=== PATIENT | male | born 1975 | race Caucasian/White ===

== ENCOUNTER 2020-08-05 16:21 | Emergency (ER) | payer OTHER ==
[2020-08-05 16:38] VITALS: BP 133/71; PULSE 74; O2SAT 100
[2020-08-05] MEDS ORDERED: TENIVAC VIAL IM ONE ×2 (16:54→17:00)
[2020-08-05] MEDS ORDERED: SILVADENE 50 GM TP ONE ×2 (16:54→17:00)
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
== END 2020-08-05 17:20 | disposition home or self-care (01) ==
LOC: ED 16:21
DX: T20.16XA Burn of first degree of forehead and cheek, initial encounter (principal); T22.112A Burn of first degree of left forearm, initial encounter; T22.111A Burn of first degree of right forearm, initial encounter; T21.12XA Burn of first degree of abdominal wall, initial encounter; W38.XXXA Explosion and rupture of other specified pressurized devices, initial encounter; Z23 Encounter for immunization
CPT/HCPCS: 90471; 90714; 99283; A9270-GY

== ENCOUNTER 2022-01-16 03:32 | Emergency (ER) | payer SELFPAY ==
[2022-01-16] MEDS ORDERED: Zofran 4 MG/2 ML VIAL ONE (03:48)
[2022-01-16] MEDS ORDERED: MORPHINE SULFATE 2 MG INJ ONE (03:49)
[2022-01-16] MEDS ORDERED: Zofran 4 MG/2 ML VIAL IV ONE (03:52)
[2022-01-16] MEDS ORDERED: MORPHINE SULFATE 2 MG INJ IV ONE (03:55)
[2022-01-16] MEDS ORDERED: Sodium Chloride 0.9% 1000 ML 1,000 ML IV STA (04:00)
[2022-01-16] MEDS ORDERED: BENADRYL 50 MG/ML IV ONE (04:00)
[2022-01-16] MEDS ORDERED: Inapsine 5 MG/2 ML IV ONE (04:00)
[2022-01-16] MEDS ORDERED: GI COCKTAIL 45 ML (Maalox/Lidocaine) PO ONE (04:02)
--- NOTE | 2022-01-16 04:07 | ERPHSYRPT ---
- History of Present Illness Time Seen by Provider: 01/16/22 04:00 Source: patient Exam Limitations: no limitations Patient Subjective Stated Complaint: headache and sternum pain Triage Nursing Assessment: pt c/o headache which woke him up around 0230 this morning. Pt also c/o pain to upper epigastric area and is nauseated. Pt is alert and oriented x4, cooperative. Pt is light sensitive. Physician History: 46-year-old male with history of migraine presented to the ER with sudden onset generalized headache waking him up from sleep almost an hour prior to arrival, constant, sharp, generalized, 10/10 intensity with associated nausea and dry heaving. Patient also reported increased light sensitivity without any visual disturbance. Reports having similar headaches once a month and does not think this is the worst headache of his life. Denies any neck pain or difficulty movements of neck. Denies any focal numbness tingling weakness. Because of dry heaving complaining of pain in the epigastric area as well. No chest pain palpitations or shortness of breath. Timing/Duration: hour(s) (1), constant, sudden, worse Quality: sharpness Head Pain Location: global Severity of Pain-Max: severe Severity of Pain-Current: severe Recent Head Trauma: frequent headaches Modifying Factors: Worsens With: exposure to light, movement Associated Symptoms: nausea/vomiting, sensitive to light, No dizziness, No fatigue, No facial pain, No fever/chills, No light-headedness, No loss of consciousness, No nasal drainage, No numbness in legs/feet, No sweating, No scotoma, No seizures, No sinus infection, No speech problems, No stiff neck, No trouble walking, No vision changes, No visual disturbance, No weakness Previous symptoms: same symptoms as today Allergies/Adverse Reactions: No Known Drug Allergies Allergy (Verified 01/16/22 03:48) Home Medications: No Reportable Medications [No Reported Medications] 01/16/22 [History] Hx Tetanus, Diphtheria Vaccination/Date Given: Yes Hx Influenza Vaccination/Date Given: No Hx Pneumococcal Vaccination/Date Given: No Immunizations Up to Date: Yes Travel Risk - International Travel Have you traveled outside of the country in past 3 weeks: No - Coronavirus Screening Are you exhibiting any of the following symptoms?: No Close contact with a COVID-19 positive Pt in past 14-21 Days: No - Vaccine Status Have you recieved a Covid-19 vaccination: No - Review of Systems Constitutional: No Symptoms Eyes: No Symptoms Ears, Nose, & Throat: No Symptoms Respiratory: No Symptoms Cardiac: No Symptoms Abdominal/Gastrointestinal: Abdominal Pain, Nausea, Vomiting Genitourinary Symptoms: No Symptoms Musculoskeletal: No Symptoms Skin: No Symptoms Neurological: Headache Psychological: No Symptoms Endocrine: No Symptoms Hematologic/Lymphatic: No Symptoms Immunological/Allergic: No Symptoms - Past Medical History Pertinent Past Medical History: No History: Other Male Reproductive Disorders: Other Other Medical History: hx kidney stones, bursitis - Past Surgical History Past Surgical History: Yes Other Surgical History: CATARACT SURGERY. cyst removed to top of head - Social History Smoking Status: Never smoker Exposure to second hand smoke: Yes Drug Use: none Patient Lives Alone: No - Nursing Vital Signs Nursing Vital Signs: Initial Vital Signs Temperature 98.9 F 01/16/22 03:33 Pulse Rate 88 01/16/22 03:33 Respiratory Rate 18 01/16/22 03:33 Blood Pressure 129/72 01/16/22 03:33 O2 Sat by Pulse Oximetry 100 01/16/22 03:33 Pain Scale Pain Intensity 0 - Physical Exam General Appearance: no apparent distress, alert Eye Exam: PERRL/EOMI, eyes nml inspection Ears, Nose, Throat Exam: normal ENT inspection, TMs normal, pharynx normal, moist mucous membranes Neck Exam: normal inspection, non-tender, supple, full range of motion, No meningismus Respiratory Exam: normal breath sounds, lungs clear Cardiovascular Exam: regular rate/rhythm, normal heart sounds Gastrointestinal/Abdominal Exam: soft, normal bowel sounds, No tenderness Back Exam: normal inspection Extremity Exam: normal inspection, normal range of motion, pelvis stable Mental Status Exam: alert, oriented x 3, cooperative qa software tester Exam: normal hearing, normal speech, PERRL Coordination/Gait Exam: normal cerebellar function Motor/Sensory Exam: no motor deficit, no sensory deficit, no pronator drift, negative Babinski's sign DTR Exam: bicep (R): 2+, bicep (L): 2+, knee (R): 2+, knee (L): 2+ Skin Exam: normal color SpO2 Interpretation: normal SpO2: 100 O2 Delivery: Room Air - Course EKG Interpreted by Me: RATE (93), Sinus Rhythm, NORMAL AXIS, NORMAL INTERVALS, NORMAL QRS Ordered Tests: Active Orders 24 hr Category Date Time Status IV Insertion STAT Care 01/16/22 04:00 Active Medication Summary Discontinued Medications Generic Name Dose Route Start Last Admin Trade Name Wendi PRN Reason Stop Dose Admin Diphenhydramine HCl 50 mg 01/16/22 04:00 01/16/22 04:08 Diphenhydramine Hcl 50 Mg/Ml Vial IV 01/16/22 04:01 50 mg STAT ONE Administration Diphenhydramine HCl Confirm 01/16/22 04:08 Diphenhydramine Hcl 50 Mg/Ml Vial Administered 01/16/22 04:09 Dose 50 mg .ROUTE .STK-MED ONE Droperidol 1.25 mg 01/16/22 04:00 01/16/22 04:10 Droperidol 5 Mg/2 Ml Vial IV 01/16/22 04:01 1.25 mg STAT ONE Administration Droperidol Confirm 01/16/22 04:08 Droperidol 5 Mg/2 Ml Vial Administered 01/16/22 04:09 Dose 5 mg .ROUTE .STK-MED ONE Sodium Chloride 1,000 mls @ 999 mls/hr 01/16/22 04:00 01/16/22 05:12 Sodium Chloride 0.9% 1000 Ml IV 01/16/22 05:00 Infused .Q1H1M STA Infusion Magnesium Hydroxide 45 ml 01/16/22 04:02 Mag Hydrx/Alum Hyd/Simeth/Lido 45 Ml Bottle PO 01/16/22 04:03 STAT ONE Morphine Sulfate Confirm 01/16/22 03:49 Morphine Sulfate 2 Mg/Ml Inj Administered 01/16/22 03:50 Dose 2 mg .ROUTE .STK-MED ONE Morphine Sulfate 2 mg 01/16/22 03:55 01/16/22 03:55 Morphine Sulfate 2 Mg/Ml Inj IV 01/16/22 03:56 2 mg STAT ONE Administration Ondansetron HCl Confirm 01/16/22 03:48 Ondansetron Hcl 4 Mg/2 Ml Vial Administered 01/16/22 03:49 Dose 4 mg .ROUTE .STK-MED ONE Ondansetron HCl 4 mg 01/16/22 03:52 01/16/22 03:53 Ondansetron Hcl 4 Mg/2 Ml Vial IV 01/16/22 03:53 4 mg STAT ONE Administration - Progress Progress: improved Air Movement: good Progress Note: 01/16/22 05:49 46-year-old is evaluated for Migraine. Nonfocal neuro exam throughout her stay in the ER, no nuchal rigidity, does not think this is the worst headache of his life and similar episodes in the past. Given recommended outpatient primary care and neurology follow-up. Do not think needs CT imaging or any other work- up and is stable for discharge. Patient ambulated in the ER without any limitation. Blood Culture(s) Obtained: No Antibiotics given: No Counseled pt/family regarding: diagnosis, need for follow-up - Departure Departure Disposition: Home Clinical Impression: Migraine Qualifiers: Migraine type: without aura Status migrainosus presence: without status migrainosus Intractability: not intractable Qualified Code(s): G43.009 - Mi graine without aura, not intractable, without status migrainosus Condition: Stable Critical Care Time: No Referrals: LIZ CAMPOS [Primary Care Provider] - Follow up/PCP as directed (1-2 days for re evaluation ) AIYLN FOSTER [NON-STAFF PHY W/O PRIVILEGES] - Follow up/PCP as directed (call for appointment ) Instructions: Migraines in Adults Additional Instructions: Take Tylenol/ibuprofen as needed. Follow-up with primary care and neurology for reevaluation to be on prophylactic medications for migraine. Return to ER for intractable headache, vomiting, neck pain, visual disturbance, numbness tingling focal weakness etc.
[2022-01-16] MEDS ORDERED: BENADRYL 50 MG/ML ONE (04:08)
[2022-01-16] MEDS ORDERED: Inapsine 5 MG/2 ML ONE (04:08)
[2022-01-16 05:49] VITALS: O2SAT 100
[2022-01-16] MEDS ORDERED: ZOFRAN ODT 4 MG PO ONE (05:57)
[2022-01-16] MEDS ORDERED: ZOFRAN ODT 4 MG ONE (05:58)
[2022-01-16 06:08] VITALS: BP 120/70; PULSE 80
== END 2022-01-16 06:09 | disposition home or self-care (01) ==
LOC: ED 03:32
DX: G43.009 Migraine without aura, not intractable, without status migrainosus (principal); R11.0 Nausea; H53.143 Visual discomfort, bilateral
CPT/HCPCS: 36000; 96374; 96375; 99284; J1200; J2270; J2405; Q0162

== ENCOUNTER 2022-01-17 15:44 | Emergency (ER) | payer SELFPAY ==
[2022-01-17] MEDS ORDERED: BENADRYL 50 MG/ML IV ONE (16:09)
[2022-01-17] MEDS ORDERED: Zofran 4 MG/2 ML VIAL IV ONE (16:09)
[2022-01-17] MEDS ORDERED: MORPHINE SULFATE 4 MG INJ IV ONE (16:09)
[2022-01-17] MEDS ORDERED: Reglan 10 MG/2 ML IV ONE (16:09)
[2022-01-17] MEDS ORDERED: Sodium Chloride 0.9% 1000 ML 1,000 ML IV STA (16:09)
[2022-01-17] MEDS ORDERED: PROTONIX 40 MG IV IV ONE ×2 (16:09→16:21)
[2022-01-17] MEDS ORDERED: BENADRYL 50 MG/ML ONE (16:21)
[2022-01-17] MEDS ORDERED: Sodium Chloride 0.9% 1000 ML 1,000 ML ONE (16:22)
[2022-01-17] MEDS ORDERED: Reglan 10 MG/2 ML ONE (16:22)
[2022-01-17] MEDS ORDERED: MORPHINE SULFATE 4 MG INJ ONE (16:22)
[2022-01-17] MEDS ORDERED: TYLENOL 325 MG ONE (16:24)
[2022-01-17] MEDS ORDERED: TYLENOL 325 MG PO STA (16:25)
[2022-01-17] MEDS ORDERED: Zofran 4 MG/2 ML VIAL ONE (16:30)
[2022-01-17 16:50] LABS: Absolute Neutrophil Ct (ANC) 7.27 (1.4-6.9); Basophil (Absolute #) 0.01 (0-0.4); Eosinophil (Absolute #) 0 (0-0.5); Hemoglobin 14.5 gm/dl (12.5-18.0); Lymphocyte (Absolute #) 1.01 (1.0-4.6); Lymphocytes % 10.9 % (24.0-44.0); Mean Cell Volume 86.6 fl (78-100); Mean Corpuscular Hemoglobin 28.5 pg (26-32); Mean Platelet Volume 11.1 fl (7.5-11.0); Monocyte (Absolute #) 0.96 (0.0-1.3); Monocytes % 10.4 % (0.0-12.0); Neutrophil % 78.6 % (36.0-66.0); Platelet Count 178 K/mm3 (150-450); Red Blood Count 5.08 M/mm3 (4.1-5.6); Red Cell Distribution Width 13.3 % (11.5-14.0); White Blood Count 9.3 K/mm3 (4.0-10.5)
[2022-01-17 16:58] LABS: ALBUMIN 3.9 g/dL (3.5-5.0); ALKALINE PHOSPHATASE 81 U/L (38-126); ANION GAP 16.5 MEQ/L (5-15); BLOOD UREA NITROGEN 17 mg/dL (9-20); CHLORIDE 103 mmol/L (98-107); Calcium 8.8 mg/dL (8.4-10.2); Carbon Dioxide 22 mmol/L (22-30); Creatinine 1 1.16 mg/dL (0.66-1.25); EST GLOMERULAR FILTRATION RATE > 60.0 ML/MIN; Glucose 105 mg/dL (74-106); LIPASE 225 U/L (23-300); Potassium 4.2 mmol/L (3.5-5.1); SGOT/AST 41 U/L (17-59); SGPT/ALT 43 U/L (0-50); SODIUM 137 mmol/L (137-145); Total Protein 6.6 g/dL (6.3-8.2)
--- NOTE | 2022-01-17 16:58 | ERPHSYRPT ---
- History of Present Illness Time Seen by Provider: 01/17/22 15:58 Source: patient, family Exam Limitations: no limitations Patient Subjective Stated Complaint: pt reports migraine since , states he was seen here and sent home and has not improved. pt now also reports dizziness, sternal pain, shortness of breath and shivering. pt reports vomiting x 1 today. Triage Nursing Assessment: pt is aox3, pt is shivering upon exam, pt febrile, re sps easy and non labored, radial pulses strong and equal, cap refill < 3 seconds, pt skin hot to touch, mucous membranes appear dry. Physician History: 46-year-old male presented to the ER with chief complaint of headache, cough, epigastric area discomfort with nausea and vomiting. Patient reports started to have headache waking him up from sleep with multiple episodes of nonprojectile, nonbilious vomiting yesterday, was evaluated in the ER, improved after symptomatic treatment but continued to have vomiting and today spiked fever with a T-max of 101 with chills, body aches fatigue tiredness and lack of energy. Denies any focal numbness tingling or weakness. Patient reports having similar headaches in the past but this seems to be a little worse than usual and lasting longer. Denies any neck pain currently but with his usual migraine he does get neck pain. No visual symptoms. Timing/Duration: day(s) (2), gradual onset, worse Severity: moderate Associated Symptoms: nausea, vomiting, abdominal pain, shortness of breath, cough, chills, chest pain, fever, headaches, malaise, weakness Allergies/Adverse Reactions: No Known Drug Allergies Allergy (Verified 01/17/22 16:00) Hx Tetanus, Diphtheria Vaccination/Date Given: No (UNK) Hx Influenza Vaccination/Date Given: No Hx Pneumococcal Vaccination/Date Given: No Immunizations Up to Date: Yes Travel Risk - International Travel Have you traveled outside of the country in past 3 weeks: No - Coronavirus Screening Are you exhibiting any of the following symptoms?: No - Vaccine Status Have you recieved a Covid-19 vaccination: No - Review of Systems Constitutional: Fever, Chills, Fatigue, Weakness Eyes: No Symptoms Ears, Nose, & Throat: Nose Congestion Respiratory: Cough, Dyspnea, Wheezing Cardiac: Chest Pain Abdominal/Gastrointestinal: Nausea, Vomiting Genitourinary Symptoms: No Symptoms Musculoskeletal: Myalgias Skin: No Symptoms Neurological: Dizziness, Headache Psychological: No Symptoms Endocrine: No Symptoms Hematologic/Lymphatic: No Symptoms Immunological/Allergic: No Symptoms - Past Medical History Pertinent Past Medical History: No History: Other Male Reproductive Disorders: Other Other Medical History: hx kidney stones, bursitis - Past Surgical History Past Surgical History: Yes Other Surgical History: CATARACT SURGERY. cyst removed to top of head - Social History Smoking Status: Never smoker Exposure to second hand smoke: No Drug Use: none Patient Lives Alone: No - Nursing Vital Signs Nursing Vital Signs: Initial Vital Signs Temperature 101.8 F 01/17/22 15:47 Pulse Rate 85 01/17/22 15:47 Respiratory Rate 20 01/17/22 15:47 Blood Pressure 123/74 01/17/22 15:47 O2 Sat by Pulse Oximetry 99 01/17/22 15:47 Pain Scale Pain Intensity 0 - Physical Exam General Appearance: no apparent distress, alert Eye Exam: PERRL/EOMI, eyes nml inspection Ears, Nose, Throat Exam: normal ENT inspection, TMs normal, pharynx normal, moist mucous membranes Neck Exam: normal inspection, non-tender, supple, full range of motion, No meningismus, No midline tenderness Respiratory Exam: normal breath sounds, lungs clear Cardiovascular Exam: regular rate/rhythm, normal heart sounds Gastrointestinal/Abdomen Exam: soft, normal bowel sounds, No tenderness, No guarding Back Exam: normal inspection, normal range of motion Extremity Exam: normal inspection, normal range of motion Neurologic Exam: alert, oriented x 3, cooperative, retanner II-XII nml as tested, normal mood/affect, nml cerebellar function, sensation nml, No motor deficits Skin Exam: normal color SpO2 Interpretation: normal SpO2: 99 - Course EKG Interpreted by Me: RATE, Sinus Rhythm, NORMAL AXIS, NORMAL QRS Ordered Tests: Active Orders 24 hr Category Date Time Status EKG-ER Only STAT Care 01/17/22 16:09 Active IV Insertion STAT Care 01/17/22 16:09 Active NPO (ED) STAT Care 01/17/22 16:09 Active ABDOMEN AND PELVIS W/0 CONTRAS [CT] Stat Exams 01/17/22 16:08 Completed CHEST WITHOUT CONTRAST [CT] Stat Exams 01/17/22 16:08 Completed HEAD WITHOUT CONTRAST [CT] Stat Exams 01/17/22 16:08 Completed BLOOD CULTURE Stat Lab 01/17/22 16:40 Received CBC W DIFF Stat Lab 01/17/22 16:00 Completed CMP Stat Lab 01/17/22 16:00 Completed LIPASE Stat Lab 01/17/22 16:00 Completed Lactic Acid Stat Lab 01/17/22 16:59 Completed TROPONIN Q3H Lab 01/17/22 16:00 Completed TROPONIN Q3H Lab 01/17/22 19:15 Ordered TROPONIN Q3H Lab 01/17/22 22:15 Ordered TROPONIN Q3H Lab 01/18/22 01:15 Ordered TROPONIN Q3H Lab 01/18/22 04:15 Ordered UA W/RFX UR CULTURE Stat Lab 01/17/22 16:09 Ordered Medication Summary Discontinued Medications Generic Name Dose Route Start Last Admin Trade Name Freq PRN Reason Stop Dose Admin Acetaminophen 975 mg 01/17/22 16:25 01/17/22 16:27 Acetaminophen 325 Mg Tablet PO 01/17/22 16:26 975 mg STAT STA Administration Acetaminophen Confirm 01/17/22 16:24 Acetaminophen 325 Mg Tablet Administered 01/17/22 16:25 Dose 975 mg .ROUTE .STK-MED ONE Diphenhydramine HCl 25 mg 01/17/22 16:09 01/17/22 16:29 Diphenhydramine Hcl 50 Mg/Ml Vial IV 01/17/22 16:10 25 mg STAT ONE Administration Diphenhydramine HCl Confirm 01/17/22 16:21 Diphenhydramine Hcl 50 Mg/Ml Vial Administered 01/17/22 16:22 Dose 50 mg .ROUTE .STK-MED ONE Sodium Chloride 1,000 mls @ 999 mls/hr 01/17/22 16:09 01/17/22 17:36 Sodium Chloride 0.9% 1000 Ml IV 01/17/22 17:09 Infused .Q1H1M STA Infusion Sodium Chloride Confirm 01/17/22 16:22 Sodium Chloride 0.9% 1000 Ml Administered 01/17/22 16:23 Dose 1,000 mls @ ud .ROUTE .STK-MED ONE Metoclopramide HCl 10 mg 01/17/22 16:09 01/17/22 16:30 Metoclopramide Hcl 10 Mg/2 Ml Vial IV 01/17/22 16:10 10 mg STAT ONE Administration Metoclopramide HCl Confirm 01/17/22 16:22 Metoclopramide Hcl 10 Mg/2 Ml Vial Administered 01/17/22 16:23 Dose 10 mg .ROUTE .STK-MED ONE Morphine Sulfate 4 mg 01/17/22 16:09 01/17/22 16:30 Morphine Sulfate 4 Mg/Ml Injection IV 01/17/22 16:10 4 mg STAT ONE Administration Morphine Sulfate Confirm 01/17/22 16:22 Morphine Sulfate 4 Mg/Ml Injection Administered 01/17/22 16:23 Dose 4 mg .ROUTE .STK-MED ONE Ondansetron HCl 4 mg 01/17/22 16:09 01/17/22 16:31 Ondansetron Hcl 4 Mg/2 Ml Vial IV 01/17/22 16:10 4 mg STAT ONE Administration Ondansetron HCl Confirm 01/17/22 16:30 Ondansetron Hcl 4 Mg/2 Ml Vial Administered 01/17/22 16:31 Dose 4 mg .ROUTE .STK-MED ONE Pantoprazole Sodium 40 mg 01/17/22 16:09 01/17/22 16:29 Pantoprazole 40 Mg Vial IV 01/17/22 16:10 40 mg STAT ONE Administration Pantoprazole Sodium Confirm 01/17/22 16:21 Pantoprazole 40 Mg Vial Administered 01/17/22 16:22 Dose 40 mg IV .STK-MED ONE Lab/Rad Data: Laboratory Result Diagrams 01/17/22 16:00 01/17/22 16:00 Laboratory Results 01/17/22 01/17/22 01/17/22 Range/Units 17:45 16:59 16:00 WBC (4.0-10.5) K/mm3 RBC (4.1-5.6) M/mm3 Hgb (12.5-18.0) gm/dl Hct (42-50) % MCV (78-100) fl MCH (26-32) pg MCHC (32-36) g/dl RDW (11.5-14.0) % Plt Count (150-450) K/mm3 MPV (7.5-11.0) fl Gran % (36.0-66.0) % Eos # (Auto) (0-0.5) Absolute Lymphs (auto) (1.0-4.6) Absolute Monos (auto) (0.0-1.3) Lymphocytes % (24.0-44.0) % Monocytes % (0.0-12.0) % Eosinophils % (0.00-5.0) % Basophils % (0.0-0.4) % Absolute Granulocytes (1.4-6.9) Basophils # (0-0.4) Sodium (137-145) mmol/L Potassium (3.5-5.1) mmol/L Chloride (98-107) mmol/L Carbon Dioxide (22-30) mmol/L Anion Gap (5-15) MEQ/L BUN (9-20) mg/dL Creatinine (0.66-1.25) mg/dL Estimated GFR ML/MIN Glucose (74-106) mg/dL Lactic Acid 2.4 H (0.4-2.0) Calcium (8.4-10.2) mg/dL Total Bilirubin (0.2-1.3) mg/dL AST (17-59) U/L ALT (0-50) U/L Alkaline Phosphatase (38-126) U/L Troponin I < 0.012 (0.000-0.034) ng/mL Serum Total Protein (6.3-8.2) g/dL Albumin (3.5-5.0) g/dL Lipase (23-300) U/L Influenza Type A Ag NEGATIVE (NEGATIVE) Influenza Type B Ag NEGATIVE (NEGATIVE) RSV (PCR) NEGATIVE (Negative) SARS-CoV-2 (PCR) POSITIVE A (NEGATIVE) 01/17/22 01/17/22 Range/Units 16:00 16:00 WBC 9.3 (4.0-10.5) K/mm3 RBC 5.08 (4.1-5.6) M/mm3 Hgb 14.5 (12.5-18.0) gm/dl Hct 44.0 (42-50) % MCV 86.6 (78-100) fl MCH 28.5 (26-32) pg MCHC 33.0 (32-36) g/dl RDW 13.3 (11.5-14.0) % Plt Count 178 (150-450) K/mm3 MPV 11.1 H (7.5-11.0) fl Gran % 78.6 H (36.0-66.0) % Eos # (Auto) 0 (0-0.5) Absolute Lymphs (auto) 1.01 (1.0-4.6) Absolute Monos (auto) 0.96 (0.0-1.3) Lymphocytes % 10.9 L (24.0-44.0) % Monocytes % 10.4 (0.0-12.0) % Eosinophils % 0.0 (0.00-5.0) % Basophils % 0.1 (0.0-0.4) % Absolute Granulocytes 7.27 H (1.4-6.9) Basophils # 0.01 (0-0.4) Sodium 137 (137-145) mmol/L Potassium 4.2 (3.5-5.1) mmol/L Chloride 103 (98-107) mmol/L Carbon Dioxide 22 (22-30) mmol/L Anion Gap 16.5 H (5-15) MEQ/L BUN 17 (9-20) mg/dL Creatinine 1.16 (0.66-1.25) mg/dL Estimated GFR > 60.0 ML/MIN Glucose 105 (74-106) mg/dL Lactic Acid (0.4-2.0) Calcium 8.8 (8.4-10.2) mg/dL Total Bilirubin 0.60 (0.2-1.3) mg/dL AST 41 (17-59) U/L ALT 43 (0-50) U/L Alkaline Phosphatase 81 (38-126) U/L Troponin I (0.000-0.034) ng/mL Serum Total Protein 6.6 (6.3-8.2) g/dL Albumin 3.9 (3.5-5.0) g/dL Lipase 225 (23-300) U/L Influenza Type A Ag (NEGATIVE) Influenza Type B Ag (NEGATIVE) RSV (PCR) (Negative) SARS-CoV-2 (PCR) (NEGATIVE) - Progress Progress Note: 01/17/22 18:32 He is given fluid bolus along with symptomatic treatment for headache, on reevaluation his headache is completely resolved. No vomiting while in the ER. Given Tylenol for fever. Has normal white count, grossly unremarkable chemistries. CT head negative for any acute findings .no neck rigidity. Nonfocal neuro exam throughout her stay in the ER. CT chest and abdomen pelvis also negative for any acute findings. I have offered him lumbar puncture which she refused and does understand the risk of permanent brain damage. I checked his COVID which is positive and patient was unvaccinated. This does explain his symptoms. He is not hypoxic, not in any distress. Does not want to stay in the hospital. Stable for discharge. Counseled pt/family regarding: lab results, diagnosis, need for follow-up, rad results - Departure Departure Disposition: Home Clinical Impression: Migraine, COVID-19 virus detected Condition: Stable Critical Care Time: No Referrals: LIZ CAMPOS [Primary Care Provider] - Follow up/PCP as directed (In 2 days for reevaluation) Instructions: Headache, Adult (DC), Coronavirus Disease 2019 (COVID-19) (DC) Additional Instructions: Follow contact/droplet precautions. Take Tylenol as needed for fever. Take Zofran as needed for nausea vomiting and keep yourself well-hydrated. Follow-up with primary care for reevaluation. Return to ER for persistent high-grade fever, difficulty movements of neck, intractable vomiting, difficulty breathing etc. Prescriptions: Ondansetron ODT 4 MG [Zofran Odt 4 mg] 1 ea PO QIDPRN PRN #7 tablet PRN Reason: n/v
--- NOTE | 2022-01-17 17:51 | XRAY ---
Indication: Migraine headache. Multiple contiguous axial images obtained through the head without contrast. Comparison: None Normal appearing brain parenchyma, ventricles, and bony calvarium for patient's age. Visualized paranasal sinuses and mastoid air cells are clear. Impression: Normal CT head without contrast exam. Comment: Preliminary interpretation made by [facility]. No critical discrepancy.
--- NOTE | 2022-01-17 17:53 | XRAY ---
Indication: Chest pain. Multiple contiguous axial images obtained through the chest without contrast. Comparison: August 11, 2016 Lungs demonstrates minimal bilateral dependent atelectasis. No suspicious pulmonary mass, infiltrate, effusion, or pneumothorax. Heart not enlarged. Stable tiny left hilar calcified node. No pathologic mediastinal lymphadenopathy. Bony thorax intact. CT abdomen/pelvis reported separately. Impression: Continued negative CT chest without contrast exam. Again incidental old granulomatous disease. Comment: Preliminary interpretation made by [facility]. No critical discrepancy.
--- NOTE | 2022-01-17 17:55 | XRAY ---
Indication: Abdomen pain. Multiple contiguous axial images obtained through the abdomen and pelvis without contrast. Comparison: October 02, 2015. CT chest reported separately. Noncontrasted stomach and bowel loops nonobstructed with normal appendix. No free fluid/air. Again nonobstructing right renal punctate calculus. Remaining liver, gallbladder, pancreas, spleen, adrenal glands, kidneys, ureters, bladder, and aorta appear unremarkable for noncontrast exam. Osseous structures intact. No ventral or inguinal hernias. Impression: 1. Stable nonobstructing renal punctate calculus. 2. Remaining CT abdomen/pelvis without contrast exam is again negative. Comment: Preliminary interpretation made by [facility]. No critical discrepancy.
[2022-01-17 18:11] LABS: INFLUENZA A NEGATIVE (NEGATIVE); INFLUENZA B NEGATIVE (NEGATIVE); RESPIRATORY SYNCTIAL VIRUS NEGATIVE (Negative)
[2022-01-17 18:24] LABS: SARS-CoV-2 Xpert Express POSITIVE (NEGATIVE)
[2022-01-17] MEDS ORDERED: TORAdol 30 mg Injection IV ONE (18:40)
[2022-01-17] MEDS ORDERED: TORAdol 30 mg Injection ONE (18:41)
[2022-01-17 19:21] VITALS: BP 110/62; PULSE 80; O2SAT 95
== END 2022-01-17 19:26 | disposition home or self-care (01) ==
LOC: ED 15:44
DX: U07.1 COVID-19 (principal); G43.909 Migraine, unspecified, not intractable, without status migrainosus; R05.9 Cough, unspecified; R10.13 Epigastric pain; R11.2 Nausea with vomiting, unspecified; R50.9 Fever, unspecified; M79.10 Myalgia, unspecified site; R53.83 Other fatigue
CPT/HCPCS: 0241U; 36000; 36415; 70450; 71250; 74176; 80053; 83605; 83690; 84484; 85025; 87040; 93005; 96374; 96375; 99285; J1200; J1885; J2270; J2405; A9270-GY

== ENCOUNTER 2022-02-21 18:02 | Emergency (ER) | payer SELFPAY ==
[2022-02-21] MEDS ORDERED: KEFLEX 500 MG PO ONE (19:15)
[2022-02-21] MEDS ORDERED: PERCOCET TABLET 5/325MG PO ONE (19:16)
--- NOTE | 2022-02-21 19:21 | ERPHSYRPT ---
- History of Present Illness Time Seen by Provider: 02/21/22 18:25 Source: patient Exam Limitations: no limitations Patient Subjective Stated Complaint: cut left 5th digit on jigsaw today Triage Nursing Assessment: pt alert, resp easy, walked in, face mask in place, has laceration to tip of 5th left digit, no bleeding Physician History: 46-year-old right-handed dominant male presented to the ER after his hand getting crushed between jigsaw while working prior to arrival. Complaining of moderate intensity sharp pain in the left little finger tip. There was bleeding initially but stopped with applying pressure. Up-to-date with tetanus. No injury anywhere else. Occurred: just prior to arrival Quality: sharpness Severity of Pain-Max: moderate Severity of Pain-Current: moderate Extremities Pain Location: 5th finger: left Modifying Factors: Improves With: immobilization. Worsens With: movement Associated Symptoms: none Allergies/Adverse Reactions: No Known Drug Allergies Allergy (Verified 02/21/22 18:16) Hx Tetanus, Diphtheria Vaccination/Date Given: No Hx Influenza Vaccination/Date Given: No Hx Pneumococcal Vaccination/Date Given: No Immunizations Up to Date: Yes Travel Risk - International Travel Have you traveled outside of the country in past 3 weeks: No - Coronavirus Screening Are you exhibiting any of the following symptoms?: No Close contact with a COVID-19 positive Pt in past 14-21 Days: No - Vaccine Status Have you recieved a Covid-19 vaccination: No - Review of Systems Constitutional: No Symptoms Eyes: No Symptoms Respiratory: No Symptoms Cardiac: No Symptoms Abdominal/Gastrointestinal: No Symptoms Genitourinary Symptoms: No Symptoms Musculoskeletal: Injury, Joint Pain Skin: Skin Lesions Neurological: No Symptoms Psychological: No Symptoms Hematologic/Lymphatic: No Symptoms - Past Medical History Pertinent Past Medical History: No History: Other Male Reproductive Disorders: Other Other Medical History: hx kidney stones, bursitis - Past Surgical History Past Surgical History: No Other Surgical History: CATARACT SURGERY. cyst removed to top of head - Social History Smoking Status: Never smoker Exposure to second hand smoke: No Drug Use: none Patient Lives Alone: No - Nursing Vital Signs Nursing Vital Signs: Initial Vital Signs Temperature 97.6 F 02/21/22 18:09 Pulse Rate 68 02/21/22 18:09 Respiratory Rate 18 02/21/22 18:09 Blood Pressure 106/73 02/21/22 18:09 O2 Sat by Pulse Oximetry 97 02/21/22 18:09 Pain Scale Pain Intensity 9 - Physical Exam General Appearance: no apparent distress, alert Neck Exam: normal inspection Cardiovascular/Respiratory Exam: normal breath sounds, regular rate/rhythm Wrist Exam: normal inspection, non-tender, no evidence of injury, normal ROM Hand Exam: laceration (Curved superficial laceration at the tip of finger to the pulp. Very tender to touch.) Mental Status Exam: alert, oriented x 3 Skin Exam: normal color SpO2 Interpretation: normal SpO2: 97 O2 Delivery: Room Air Ordered Tests: Active Orders 24 hr Category Date Time Status FINGER(S) Stat Exams 02/21/22 18:51 Taken - Progress Progress: improved, pain not gone completely Progress Note: 02/21/22 19:18 Given pain medication for symptomatic relief. X-ray showed fracture tuft. As per patient request laceration is repaired with glue and Steri-Strip as he does not want stitching done. Given dose of antibiotics. Outpatient hand surgery follow-up recommended. Counseled pt/family regarding: diagnosis, need for follow-up, rad results - Departure Departure Disposition: Home Clinical Impression: Open fracture of tuft of distal phalanx of finger Condition: Stable Critical Care Time: No Referrals: LIZ CAMPOS [Primary Care Provider] - Follow Up with PCP/3 days RENATO ROGERS MD [NON-STAFF PHY W/O PRIVILEGES] - Follow up/PCP as directed (In 3 days for reevaluation) Instructions: Laceration Repair With Glue (DC) Additional Instructions: Keep it clean, avoid exertional activities. Take Tylenol/ibuprofen as needed for pain. Follow-up with hand surgery for reevaluation. Return to ER for increasing pain swelling redness discharge/fever chills etc. Prescriptions: Tramadol HCl 50 mg [Ultram 50 mg] 50 mg PO Q6HPRN PRN 3 Days #12 tablet PRN Reason: Pain Cephalexin Mh 500 mg [Keflex 500 mg] 500 mg PO TID #21 cap
[2022-02-21] MEDS ORDERED: PERCOCET TABLET 5/325MG ONE (19:25)
[2022-02-21] MEDS ORDERED: KEFLEX 500 MG ONE (19:25)
--- NOTE | 2022-02-21 20:29 | XRAY ---
Indication: Laceration. Comparison: None 3 view left 5th finger demonstrates distal soft tissue swelling/laceration and nondisplaced tuft fracture. No other bony, articular, or soft tissue abnormalities.
[2022-02-21 20:32] VITALS: BP 114/73; PULSE 74; O2SAT 98
== END 2022-02-21 20:33 | disposition home or self-care (01) ==
LOC: ED 18:02
DX: S62.637B Displaced fracture of distal phalanx of left little finger, initial encounter for open fracture (principal); W27.0XXA Contact with workbench tool, initial encounter; M79.645 Pain in left finger(s); Z79.891 Long term (current) use of opiate analgesic
CPT/HCPCS: 73140; 99283; A9270-GY

== ENCOUNTER 2023-07-14 17:36 | Emergency (ER) | payer SELFPAY ==
--- NOTE | 2023-07-14 17:39 | ERPHSYRPT ---
- History of Present Illness Time Seen by Provider: 07/14/23 17:38 Source: patient Exam Limitations: no limitations Physician History: This is a right-handed 48-year-old white male who was working at a tire shop and changing a tire and when he lifted a heavy tire he felt a pop in his shoulder then pain in the right posterior trapezius distribution. He is most comfortable with his elbow flexed and against his abdomen. Occurred: just prior to arrival Method of Injury: other (Lifting a heavy tire) Quality: aching, throbbing Severity of Pain-Max: mild (To moderate) Severity of Pain-Current: mild (To moderate) Extremities Pain Location: shoulder: right Modifying Factors: Improves With: movement Associated Symptoms: none Allergies/Adverse Reactions: No Known Drug Allergies Allergy (Verified 07/14/23 17:55) Hx Tetanus, Diphtheria Vaccination/Date Given: No Hx Influenza Vaccination/Date Given: No Hx Pneumococcal Vaccination/Date Given: No Travel Risk - International Travel Have you traveled outside of the country in past 3 weeks: No - Coronavirus Screening Are you exhibiting any of the following symptoms?: No Close contact with a COVID-19 positive Pt in past 14-21 Days: No - Vaccine Status Have you recieved a Covid-19 vaccination: No - Review of Systems Constitutional: No Symptoms Eyes: No Symptoms Ears, Nose, & Throat: No Symptoms Respiratory: No Symptoms Cardiac: No Symptoms Abdominal/Gastrointestinal: No Symptoms Genitourinary Symptoms: No Symptoms Musculoskeletal: Injury (Right shoulder) Skin: No Symptoms Neurological: No Symptoms Psychological: No Symptoms Endocrine: No Symptoms Hematologic/Lymphatic: No Symptoms Immunological/Allergic: No Symptoms All Other Systems: Reviewed and Negative - Past Medical History Pertinent Past Medical History: No History: Other Male Reproductive Disorders: Other Other Medical History: hx kidney stones, bursitis - Past Surgical History Past Surgical History: No Other Surgical History: CATARACT SURGERY. cyst removed to top of head - Social History Smoking Status: Never smoker Exposure to second hand smoke: No Drug Use: none Patient Lives Alone: No - Nursing Vital Signs Nursing Vital Signs: Initial Vital Signs Temperature 97.0 F 07/14/23 17:59 Pulse Rate 74 07/14/23 17:59 Respiratory Rate 18 07/14/23 17:59 Blood Pressure 123/71 07/14/23 17:59 O2 Sat by Pulse Oximetry 96 07/14/23 17:59 Pain Scale Pain Intensity 9 - Physical Exam General Appearance: no apparent distress, alert, anxiety Eyes, Ears, Nose, Throat Exam: normal ENT inspection, moist mucous membranes Neck Exam: normal inspection, non-tender, supple, full range of motion Cardiovascular/Respiratory Exam: chest non-tender, no respiratory distress Abdominal Exam: non-tender Back Exam: normal inspection, normal range of motion, No CVA tenderness, No vertebral tenderness Shoulder Exam: normal inspection, no evidence of injury, limited ROM (Secondary to painright shoulder) Elbow/Forearm Exam: normal inspection, non-tender, no evidence of injury, normal ROM Wrist Exam: normal inspection, non-tender, no evidence of injury Hand Exam: normal inspection, non-tender, no evidence of injury, normal ROM Neuro/Tendon Exam: normal sensation, normal motor functions, normal tendon functions Mental Status Exam: alert, oriented x 3, cooperative Skin Exam: normal color, warm, dry SpO2 Interpretation: normal O2 Delivery: Room Air - Course Nursing assessment & vital signs reviewed: Yes Ordered Tests: Active Orders 24 hr Category Date Time Status SHOULDER Stat Exams 07/14/23 18:02 Taken Medication Summary Discontinued Medications Generic Name Dose Route Start Last Admin Trade Name Freq PRN Reason Stop Dose Admin Methylprednisolone Sodium 0 mg 07/14/23 18:14 07/14/23 18:24 Succinate 125 mg/ Sterile IM 07/14/23 18:15 125 mg Water 2 ml STAT ONE Administration Methylprednisolone Sodium Succinate Confirm 07/14/23 18:21 Methylprednis Sod Succ 125 Mg/2 Ml Vial Administered 07/14/23 18:22 Dose 125 mg .ROUTE .STK-MED ONE Orphenadrine Citrate 60 mg 07/14/23 18:14 07/14/23 18:24 Orphenadrine Citrate 60 Mg/2 Ml Vial IM 07/14/23 18:15 60 mg STAT ONE Administration Orphenadrine Citrate Confirm 07/14/23 18:21 Orphenadrine Citrate 60 Mg/2 Ml Vial Administered 07/14/23 18:22 Dose 60 mg .ROUTE .STK-MED ONE Oxycodone/Acetaminophen 1 tab 07/14/23 18:13 07/14/23 18:24 Oxycodone Hcl/Apap 5 Mg/325 Mg Tablet PO 07/14/23 18:14 1 tab STAT STA Administration Oxycodone/Acetaminophen Confirm 07/14/23 18:21 Oxycodone Hcl/Apap 5 Mg/325 Mg Tablet Administered 07/14/23 18:22 Dose 1 tab .ROUTE .STK-MED ONE Sterile Water Confirm 07/14/23 18:21 Water For Injection,Sterile 10 Ml Vial Administered 07/14/23 18:22 Dose 10 ml IJ .STK-MED ONE - Progress Progress: improved, pain not gone completely, re-examined Progress Note: 07/14/23 18:19 This patient's medical issue is 1 of low complexity. The level complex in the work-up performed is based on review the patient's past medical history, review the patient's medication list, review of the patient's drug allergy list, history present illness and physical findings on examination. The work-up in this patient includes x-ray of the right shoulder. 07/14/23 18:51 I interpreted the x-ray of the right shoulder. There is no evidence of any acute fracture or dislocation. Counseled pt/family regarding: diagnosis, need for follow-up, rad results Medical Desision Making - Independent Historian Additional History obtained from: Spouse - Diagnostic Testing Diagnostic test were ordered, analyzed, and reviewed by me: Yes Radiological Interpretation: Interpreted by me - Risk of complications The pt has a mod risk of morbidity or mortality based on: Need for prescription drug management - Departure Departure Disposition: Home Clinical Impression: Right shoulder strain Condition: Stable Critical Care Time: No Referrals: LIZ CAMPOS [Primary Care Provider] - Follow up/PCP as directed Additional Instructions: Wear sling for comfort. Take the medication as prescribed. Follow-up with your primary care provider or [facility] orthopedic clinic Wednesday through Wednesday 8 AM to 10 AM for further evaluation and management if pain persist beyond 48 hours. The orthopedic clinic is a walk-in clinic and you do not need to have an appointment. Prescriptions: Prednisone 10 mg [Deltasone 10 mg] 10 mg PO TID #12 tablet Orphenadrine Citrate 100 mg [Norflex 100 MG Tablet] 100 mg PO BID #10 tab
[2023-07-14 18:00] VITALS: TEMP 97
[2023-07-14] MEDS ORDERED: PERCOCET TABLET 5/325MG PO STA (18:13)
[2023-07-14] MEDS ORDERED: solu-MEDROL 125 MG, Sterile H2O 10 ml 2 ML IM ONE ×2 (18:14)
[2023-07-14] MEDS ORDERED: Norflex 60 MG/2 ML IM ONE (18:14)
[2023-07-14] MEDS ORDERED: solu-MEDROL ONE (18:21)
[2023-07-14] MEDS ORDERED: PERCOCET TABLET 5/325MG ONE (18:21)
[2023-07-14] MEDS ORDERED: Norflex 60 MG/2 ML ONE (18:21)
[2023-07-14] MEDS ORDERED: Sterile H2O 10 ml IJ ONE (18:21)
[2023-07-14 19:03] VITALS: BP 113/75; PULSE 68; RESP 16; O2SAT 97
--- NOTE | 2023-07-15 08:49 | XRAY ---
Indication: Pain following lifting injury. Comparison: None 3 view right shoulder obtained. No bony, articular, or soft tissue abnormalities.
== END 2023-07-14 19:06 | disposition home or self-care (01) ==
LOC: ED 17:36
DX: S46.911A Strain of unspecified muscle, fascia and tendon at shoulder and upper arm level, right arm, initial encounter (principal); X50.0XXA Overexertion from strenuous movement or load, initial encounter; Y99.0 Civilian activity done for income or pay; Z28.310 Unvaccinated for COVID-19
CPT/HCPCS: 73030; 96372; 99283; J2360; J2930; A9270-GY

== ENCOUNTER 2024-07-12 11:53 | Emergency (ER) | payer OTHER ==
[2024-07-12 12:07] VITALS: TEMP 98.5; O2SAT 100
--- NOTE | 2024-07-12 12:21 | ERPHSYRPT ---
- History of Present Illness Time Seen by Provider: 07/12/24 11:55 Source: patient, family Exam Limitations: no limitations Patient Subjective Stated Complaint: C/O SOB that woke him up out of his sleep this am. States he has been congested since 07/10/24. Triage Nursing Assessment: Patient brought down to ER by [facility] staff in a W/C. He was able to transfer self from chair to bed. He is SOB. No cough noted during assessment states he has had a productive cough at home; brown sputum. SHELLEY SAENZ. Physician History: 49 years old healthy male presented in the ER with complaint of shortness of breath. Patient report he started to have head cold 3 days ago followed by off-and-on cough and chest congestion. This morning he woke up coughing hard with low-grade temperature and now feels pressure in the center of the chest and hurts to take a deep breath. Patient reports getting short of breath with activ ity. Reports having similar symptoms last time when he had a COVID-19. Denies any known sick contact. No history of coronary artery disease. No history of asthma or COPD. Patient is on room air oxygen around 100%, mildly tachypneic. No tachycardia. Allergies/Adverse Reactions: No Known Drug Allergies Allergy (Verified 07/12/24 11:58) Home Medications: Ibuprofen [Ibu] 800 mg PO DAILY 07/12/24 [History] Hx Tetanus, Diphtheria Vaccination/Date Given: No Hx Influenza Vaccination/Date Given: No Hx Pneumococcal Vaccination/Date Given: No Travel Risk - International Travel Have you traveled outside of the country in past 3 weeks: No - Emerging Infectious Disease Are you exhibiting symptoms associated with any current EIDs: Yes Symptoms: Cough: New Onset, Fever, Headaches/Body Aches/, Shortness of Breath - Review of Systems Constitutional: Fever, Chills Eyes: No Symptoms Ears, Nose, & Throat: Nose Congestion Respiratory: Cough, Dyspnea Cardiac: Chest Pain Abdominal/Gastrointestinal: No Symptoms Genitourinary Symptoms: No Symptoms Musculoskeletal: Myalgias Skin: No Symptoms Neurological: No Symptoms Psychological: No Symptoms Endocrine: No Symptoms Hematologic/Lymphatic: No Symptoms Immunological/Allergic: No Symptoms - Past Medical History Pertinent Past Medical History: No Neurological History: No Pertinent History Cardiac History: No Pertinent History Respiratory History: No Pertinent History Endocrine Medical History: No Pertinent History Musculoskeletal History: Osteoarthritis History: No Pertinent History Male Reproductive Disorders: Other Other Medical History: NO PREVIOUS INJURIES PRIOR TO THIS - Past Surgical History Past Surgical History: Yes Other Surgical History: cyst removed to top of head, left ankle - Social History Smoking Status: Never smoker Exposure to second hand smoke: No Drug Use: none Patient Lives Alone: No - Social Determinants of Health Will the patient participate in the screening: Declined to provide - Nursing Vital Signs Nursing Vital Signs: Initial Vital Signs Temperature 98.5 F 07/12/24 11:59 Pulse Rate 70 07/12/24 11:59 Respiratory Rate 30 H 07/12/24 11:59 Blood Pressure 118/66 07/12/24 11:59 O2 Sat by Pulse Oximetry 100 07/12/24 11:59 Pain Scale Pain Intensity 0 - Physical Exam General Appearance: no apparent distress, alert Eye Exam: PERRL/EOMI Ears, Nose, Throat Exam: hearing grossly normal, nasal congestion, pharyngeal erythema Neck Exam: normal inspection, non-tender, supple, full range of motion Respiratory Exam: normal breath sounds, lungs clear Cardiovascular/Chest Exam: normal heart sounds, regular rate/rhythm Abdominal/Gastrointestinal Exam: soft, No tenderness Extremity Exam: non-tender, normal range of motion Neurologic Exam: alert, oriented x 3, cooperative Skin Exam: normal color SpO2 Interpretation: normal SpO2: 100 O2 Delivery: Room Air - Course EKG Interpreted by Me: RATE (71), Sinus Rhythm, NORMAL AXIS, NORMAL INTERVALS, NORMAL QRS Ordered Tests: Medication Summary Discontinued Medications Generic Name Dose Route Start Last Admin Trade Name Freq PRN Reason Stop Dose Admin Albuterol/Ipratropium 3 ml 07/12/24 12:18 07/12/24 12:26 Ipratropium/Albuterol Sulfate 3 Ml Ampul.Neb IH 07/12/24 12:19 3 ml STAT ONE Administration Albuterol/Ipratropium Confirm 07/12/24 12:25 Ipratropium/Albuterol Sulfate 3 Ml Ampul.Neb Administered 07/12/24 12:26 Dose 3 ml IH .STK-MED ONE Lab/Rad Data: Laboratory Result Diagrams 07/12/24 12:40 07/12/24 12:40 Laboratory Results 07/12/24 07/12/24 07/12/24 Range/Units 12:58 12:40 12:40 WBC (4.23-9.07) x10^3/uL RBC (4.63-6.08) x10^6/uL Hgb (13.7-17.5) g/dL Hct (40.1-51.0) % MCV (79.0-92.2) fL MCH (25.7-32.2) pg MCHC (32.3-36.5) g/dL RDW (11.6-14.4) % Plt Count (163-337) x10^3/uL MPV (9.4-12.4) fL Gran % (34.0-67.9) % Immature Gran % (Auto) (0.001-0.429) % Nucleat RBC Rel Count (0.00-0.2) % Eos # (Auto) (0.04-0.54) x10^3/uL Immature Gran # (Auto) (0.001-0.031) x10^3u/L Absolute Lymphs (auto) (1.32-3.57) x10^3/uL Absolute Monos (auto) (0.30-0.82) x10^3/uL Absolute Nucleated RBC (0.00-0.012) x10^3u/L Lymphocytes % (21.8-53.1) % Monocytes % (5.3-12.2) % Eosinophils % (0.8-7.0) % Basophils % (0.2-1.2) % Absolute Granulocytes (1.78-5.38) x10^3/uL Basophils # (0.01-0.08) x10^3/uL D-Dimer (0.0-0.50) mg/L Sodium (135-145) mmol/L Potassium (3.5-5.1) mmol/L Chloride (98-107) mmol/L Carbon Dioxide (22-30) mmol/L Anion Gap (5-15) MEQ/L BUN (9-20) mg/dL Creatinine (0.66-1.25) mg/dL Estimated GFR ML/MIN Glucose (74-106) mg/dL Lactic Acid 1.6 (0.4-2.0) Calcium (8.4-10.2) mg/dL Magnesium (1.6-2.3) mg/dL Total Bilirubin (0.2-1.3) mg/dL AST (17-59) U/L ALT (0-50) U/L Alkaline Phosphatase (38-126) U/L Troponin I < 0.012 (0.000-0.033) ng/mL NT-Pro-B Natriuret Pep 103 (<300) pg/mL Serum Total Protein (6.3-8.2) g/dL Albumin (3.5-5.0) g/dL Influenza Type A Ag NEGATIVE (NEGATIVE) Influenza Type B Ag NEGATIVE (NEGATIVE) RSV (PCR) NEGATIVE (NEGATIVE) SARS-CoV-2 (PCR) NEGATIVE (NEGATIVE) Slides for Path Review 07/12/24 07/12/24 07/12/24 Range/Units 12:40 12:40 12:40 WBC 10.2 H (4.23-9.07) x10^3/uL RBC 5.33 (4.63-6.08) x10^6/uL Hgb 14.9 (13.7-17.5) g/dL Hct 45.6 (40.1-51.0) % MCV 85.6 (79.0-92.2) fL MCH 28.0 (25.7-32.2) pg MCHC 32.7 (32.3-36.5) g/dL RDW 11.9 (11.6-14.4) % Plt Count 229 (163-337) x10^3/uL MPV 10.3 (9.4-12.4) fL Gran % 65.5 (34.0-67.9) % Immature Gran % (Auto) 0.2 (0.001-0.429) % Nucleat RBC Rel Count 0.0 (0.00-0.2) % Eos # (Auto) 0.02 L (0.04-0.54) x10^3/uL Immature Gran # (Auto) 0.02 (0.001-0.031) x10^3u/L Absolute Lymphs (auto) 1.72 (1.32-3.57) x10^3/uL Absolute Monos (auto) 1.72 H (0.30-0.82) x10^3/uL Absolute Nucleated RBC 0.00 (0.00-0.012) x10^3u/L Lymphocytes % 16.8 L (21.8-53.1) % Monocytes % 16.8 H (5.3-12.2) % Eosinophils % 0.2 L (0.8-7.0) % Basophils % 0.5 (0.2-1.2) % Absolute Granulocytes 6.68 H (1.78-5.38) x10^3/uL Basophils # 0.05 (0.01-0.08) x10^3/uL D-Dimer 0.22 (0.0-0.50) mg/L Sodium 137 (135-145) mmol/L Potassium 4.1 (3.5-5.1) mmol/L Chloride 104 (98-107) mmol/L Carbon Dioxide 19 L (22-30) mmol/L Anion Gap 18.3 H (5-15) MEQ/L BUN 12 (9-20) mg/dL Creatinine 1.24 (0.66-1.25) mg/dL Estimated GFR 70.8 ML/MIN Glucose 110 H (74-106) mg/dL Lactic Acid (0.4-2.0) Calcium 9.8 (8.4-10.2) mg/dL Magnesium 1.9 (1.6-2.3) mg/dL Total Bilirubin 0.60 (0.2-1.3) mg/dL AST 29 (17-59) U/L ALT 46 (0-50) U/L Alkaline Phosphatase 85 (38-126) U/L Troponin I (0.000-0.033) ng/mL NT-Pro-B Natriuret Pep (<300) pg/mL Serum Total Protein 8.3 H (6.3-8.2) g/dL Albumin 4.8 (3.5-5.0) g/dL Influenza Type A Ag (NEGATIVE) Influenza Type B Ag (NEGATIVE) RSV (PCR) (NEGATIVE) SARS-CoV-2 (PCR) (NEGATIVE) Slides for Path Review YES - Progress Progress: improved, re-examined Air Movement: good Progress Note: 07/12/24 14:07 49 years old is evaluated in the ER with cough congestion symptoms with some chest pain since 4 AM. Patient symptoms started initially as upper respiratory now having some lower respiratory symptoms with chest pain. EKG is normal sinus rhythm with no acute ischemic changes. Negative troponins. Negative D-dimers. Normal white count, chemistries with some element of dehydration. Chest x-ray is negative. Patient has negative COVID flu and RSV. I believe patient's symptoms are more of a viral etiology bronchitis, given a breathing treatment and here, feeling much better on reevaluation. I would continue with a short course of steroids and albuterol inhaler to go home and outpatient follow-up recommended. Symptoms does not seems to be cardiac etiology, do not think needs second troponin in 1 negative troponin is enough to rule it out. Discussed signs symptoms of worsening needing return to ER which he seems understanding. Stable for discharge. Blood Culture(s) Obtained: Yes Antibiotics given: No Counseled pt/family regarding: lab results, diagnosis, need for follow-up, rad results Medical Desision Making - Independent Historian Additional History obtained from: Spouse - Diagnostic Testing Diagnostic test were ordered, analyzed, and reviewed by me: Yes Radiological Interpretation: Reviewed by me - Risk of complications The pt has a mod risk of morbidity or mortality based on: Need for prescription drug management - Departure Departure Disposition: Home Clinical Impression: URI with cough and congestion Condition: Stable Critical Care Time: No Referrals: LIZ CAMPOS [Primary Care Provider] - Follow up with PCP 1 day Instructions: Cough, Adult ED Additional Instructions: Take Tylenol/ibuprofen/albuterol inhaler as needed for symptomatic relief. F ernielow-up with primary care for reevaluation. Return to ER for worsening of cough, difficulty breathing or if having persistent chest pain/high-grade fever etc. Prescriptions: Albuterol Sulfate [Albuterol Sulfate Hfa] 8.5 gm IH Q6H PRN 7 Days #1 inh PRN Reason: Cough Prednisone 20 mg [Deltasone 20 mg] 60 mg PO DAILY 5 Days #15 tablet
[2024-07-12] MEDS ORDERED: DUONEB 0.5-3 MG/3 ml Neb IH ONE (12:25)
[2024-07-12] MEDS: DUONEB 0.5-3 MG/3 ml Neb IH ONE (12:26)
--- NOTE | 2024-07-12 12:38 | XRAY ---
Indication: Short of breath. Comparison: August 10, 2016 Portable chest again demonstrates normal heart and lungs. Bony thorax intact. No new/acute findings.
[2024-07-12 12:58] LABS: Absolute Neutrophil Ct (ANC) 6.68 x10^3/uL (1.78-5.38); BASOPHIL % 0.5 % (0.2-1.2); Basophil (Absolute #) 0.05 x10^3/uL (0.01-0.08); Eosinophil % 0.2 % (0.8-7.0); Eosinophil (Absolute #) 0.02 x10^3/uL (0.04-0.54); Hematocrit 45.6 % (40.1-51.0); Hemoglobin 14.9 g/dL (13.7-17.5); IMMATURE GRAN # 0.02 x10^3u/L (0.001-0.031); IMMATURE GRAN % 0.2 % (0.001-0.429); Lymphocyte (Absolute #) 1.72 x10^3/uL (1.32-3.57); Lymphocytes % 16.8 % (21.8-53.1); Mean Cell Volume 85.6 fL (79.0-92.2); Mean Corpuscular Hgb Concent. 32.7 g/dL (32.3-36.5); Mean Platelet Volume 10.3 fL (9.4-12.4); Monocyte (Absolute #) 1.72 x10^3/uL (0.30-0.82); Monocytes % 16.8 % (5.3-12.2); Neutrophil % 65.5 % (34.0-67.9); Platelet Count 229 x10^3/uL (163-337); Red Blood Count 5.33 x10^6/uL (4.63-6.08); Red Cell Distribution Width 11.9 % (11.6-14.4); White Blood Count 10.2 x10^3/uL (4.23-9.07)
[2024-07-12 13:01] VITALS: BP 126/67; PULSE 78; RESP 12
[2024-07-12 13:09] LABS: ALBUMIN 4.8 g/dL (3.5-5.0); ANION GAP 18.3 MEQ/L (5-15); BILIRUBIN,TOTAL 0.6 mg/dL (0.2-1.3); Calcium 9.8 mg/dL (8.4-10.2); Creatinine 1 1.24 mg/dL (0.66-1.25); EST GLOMERULAR FILTRATION RATE 70.8 ML/MIN; MAGNESIUM 1.9 mg/dL (1.6-2.3); Potassium 4.1 mmol/L (3.5-5.1); Total Protein 8.3 g/dL (6.3-8.2)
[2024-07-12 13:21] LABS: NT PRO BNPII 103 pg/mL (<300); TROPONIN < 0.012 ng/mL (0.000-0.033)
[2024-07-12 13:30] LABS: Slide Review 1 YES
[2024-07-12 13:31] LABS: INFLUENZA A NEGATIVE (NEGATIVE); INFLUENZA B NEGATIVE (NEGATIVE); RESPIRATORY SYNCTIAL VIRUS NEGATIVE (NEGATIVE); SARS-CoV-2 Xpert Express NEGATIVE (NEGATIVE)
== END 2024-07-12 14:20 | disposition home or self-care (01) ==
LOC: ED 11:53
DX: J06.9 Acute upper respiratory infection, unspecified (principal); R05.1 Acute cough; R06.02 Shortness of breath; Z79.52 Long term (current) use of systemic steroids; Z79.899 Other long term (current) drug therapy
CPT/HCPCS: 0241U; 36415; 71045; 80053; 83605; 83735; 83880; 84484; 85025; 85379; 87040; 93005; 94640; 99283; A9270-GY